=== PATIENT | male | born 1950 ===

== ENCOUNTER 2016-09-30 14:20 | Emergency (ER) | payer BC ==
[2016-09-30 14:20] VITALS: BMI 27.3
[2016-09-30 23:37] LABS: URINE BILIRUBIN NEGATIVE (NEGATIVE); URINE BLOOD NEGATIVE (NEGATIVE); URINE CLARITY Clear (Clear); URINE COLOR Yellow (YELLOW); URINE GLUCOSE (UA) NORMAL (Normal); URINE LEUKOCYTE ESTERASE NEG Leu/uL (Negative); URINE NITRATE NEGATIVE (NEGATIVE); URINE PROTEIN NEGATIVE (NEGATIVE); URINE UROBILINOGEN NORMAL mg/dL (0.2-1.0)
== END 2016-09-30 16:05 | disposition home or self-care (01) ==
LOC: C.ER 14:20
DX: M54.16 Radiculopathy, lumbar region (principal)
CPT/HCPCS: 81001; 96372; 99283; J1885

== ENCOUNTER 2016-10-05 07:52 | Emergency (ER) | payer BC ==
[2016-10-05 07:52] VITALS: BMI 27.3
[2016-10-05 08:21] LABS: URINE BILIRUBIN NEGATIVE (NEGATIVE); URINE BLOOD NEGATIVE (NEGATIVE); URINE CLARITY Clear (Clear); URINE COLOR Yellow (YELLOW); URINE GLUCOSE (UA) NORMAL (Normal); URINE LEUKOCYTE ESTERASE NEG Leu/uL (Negative); URINE NITRATE NEGATIVE (NEGATIVE); URINE PROTEIN NEGATIVE (NEGATIVE); URINE UROBILINOGEN NORMAL mg/dL (0.2-1.0)
--- NOTE | 2016-10-05 09:38 | RAD ---
PROCEDURE: Radiographs of the Lumbar Spine. HISTORY: left sciatica COMPARISON: No prior. FINDINGS: BONES: Normal alignment. No listhesis. No fracture. 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 Lumbosacral transitional elements suggested
--- NOTE | 2016-10-05 10:20 | C.PDOC ---
History Of Present Illness Patient is a 66 y/o male that presents to the ED for evaluation of low back pain radiating down to right buttock, posterior thigh/leg and down to right heel for the past week. Patient states he was seen here on 09/30/16 and was given Tramadol, and Robaxin, but states his pain still persists. Denies following up with his PMD. Otherwise, denies any fever, chills, abdominal pain, nausea, vomiting, weakness, numbness, urinary symptoms, or any other associated symptoms at this time. Chief Complaint (Nursing): Male Genitourinary History Per: Patient History/Exam Limitations: no limitations Onset/Duration Of Symptoms: Days (1 week) Current Symptoms Are (Timing): Still Present Quality Of Discomfort: "Pain" Associated Symptoms: Back Pain. denies: Fever, Chills, Nausea, Vomiting, Diarrhea, Loss Of Appetite, Chest Pain, Constipation, Urinary Symptoms Alleviating Factors: None Recent travel outside of the [place]: No Additional History Per: Patient Past Medical History Reviewed: Historical Data, Nursing Documentation, Vital Signs Vital Signs: Last Vital Signs Temp 97.7 F 10/05/16 10:39 Pulse 50 L 10/05/16 10:39 Resp 18 10/05/16 10:39 BP 133/71 10/05/16 10:39 Pulse Ox 98 10/05/16 15:07 - Medical History PMH: Diabetes, HTN, Hypercholesterolemia Family History: States: Unknown Family Hx - Social History Hx Alcohol Use: No Hx Substance Use: No - Immunization History Hx Tetanus Toxoid Vaccination: Yes Hx Influenza Vaccination: Yes Hx Pneumococcal Vaccination: Yes Review Of Systems Except As Marked, All Systems Reviewed And Found Negative. Constitutional: Negative for: Fever, Chills Gastrointestinal: Negative for: Nausea, Vomiting, Abdominal Pain Genitourinary: Negative for: Dysuria, Frequency, Incontinence, Hematuria Musculoskeletal: Positive for: Back Pain Neurological: Negative for: Weakness, Numbness, Headache, Dizziness Physical Exam - Physical Exam Appears: Non-toxic, No Acute Distress Skin: Normal Color, Warm, Dry Head: Atraumatic, Normacephalic Eye(s): bilateral: Normal Inspection, EOMI Neck: Normal ROM, Supple Chest: Symmetrical, No Tenderness Cardiovascular: Rhythm Regular, No Murmur Respiratory: Normal Breath Sounds, No Rales, No Rhonchi, No Wheezing Gastrointestinal/Abdominal: Soft, No Tenderness Back: Paraspinal Tenderness (lumbar) Extremity: Normal ROM, Tenderness (right posterior buttock, and thigh), No Calf Tenderness, No Capillary Refill (< 2 sec.), No Deformity, No Swelling Neurological/Psych: Oriented x3, Normal Speech, Normal Cognition, Normal Motor, Normal Sensation, Other (neuro intact) ED Course And Treatment O2 Sat by Pulse Oximetry: 98 (on RA) Pulse Ox Interpretation: Normal - Other Rad LS spine X-Ray: Viewed By Me, Read By Radiologist Interpretation: FINDINGS: BONES: Normal alignment. No listhesis. No fracture. 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 DISC SPACES: L5-S1 and L4-5 and minimally at L3-4 space narrowing (part of the lumbosacral junctional "Disc space narrowing narrowing probably also relates to transitional rudimentary disc. OTHER FINDINGS: Atherosclerotic vascular calcifications. IMPRESSION: Degenerative changes as above. Lumbosacral transitional elements suggested Progress Note: Urinalysis, and LS spine x-ray ordered and reviewed. Patient was given Toradol IM in the ER. On reassessment, patient is resting comfortably, with no acute distress. Patient reports improvement of symptoms. Patient is being discharged home with instructions to follow up with PMD. Disposition - Disposition Disposition: HOME/ ROUTINE Disposition Time: 11:22 Condition: STABLE Additional Instructions: Follow up with your PMD within 1-2 days. Return to Ed if feel worse. Prescriptions: oxyCODONE/Acetaminophen [Percocet 5/325 mg Tab] 1 tab PO QID PRN #20 tab PRN Reason: Pain Instructions: Sciatica (ED) Forms: Work Excuse Print Language: ICELANDIC - Clinical Impression Clinical Impression: Sciatica - PA / UNIT ASSEMBLER / Resident Statement MD/DO has reviewed & agrees with the documentation as recorded. - Scribe Statement The provider has reviewed the documentation as recorded by the Tiffanie Ovalle All medical record entries made by the Teaganibmireya were at my direction and personally dictated by me. I have reviewed the chart and agree that the record accurately reflects my personal performance of the history, physical exam, medical decision making, and the department course for this patient. I have also personally directed, reviewed, and agree with the discharge instructions and disposition.
[2016-10-05 10:40] VITALS: BP 133/71; PULSE 50; RESP 18; TEMP 97.7
[2016-10-05 11:25] VITALS: O2SAT 98
== END 2016-10-05 11:36 | disposition home or self-care (01) ==
LOC: C.ER 07:52
DX: M54.31 Sciatica, right side (principal)
CPT/HCPCS: 72100; 81001; 96372; 99284; J1885

== ENCOUNTER 2017-10-29 08:56 | Emergency (ER) | payer BC, MEDICARE ==
[2017-10-29 08:56] VITALS: BMI 27.3
[2017-10-29 09:18] VITALS: RESP 20; O2SAT 96
[2017-10-29] MEDS ORDERED: Naproxen 550 mg Tab PO STA (09:34)
[2017-10-29] MEDS ORDERED: Naproxen 550 mg Tab PO ONE (09:55)
--- NOTE | 2017-10-29 10:16 | C.PDOC ---
History Of Present Illness 67 y/o male presents to the ER complaining of non-productive cough and pleuritic chest pain present for the past 3 days. Patient denies SOB, fever, sore throat, runny nose, rash, and falls/injuries. Time Seen by Provider: 10/29/17 09:24 Chief Complaint (Nursing): Cough, Cold, Congestion History Per: Patient History/Exam Limitations: no limitations Onset/Duration Of Symptoms: Days Current Symptoms Are (Timing): Still Present Severity: Mild Past Medical History Reviewed: Historical Data, Nursing Documentation, Vital Signs Vital Signs: Last Vital Signs Temp 97.7 F 10/29/17 10:30 Pulse 56 L 10/29/17 10:30 Resp 20 10/29/17 09:16 BP 113/65 10/29/17 10:30 Pulse Ox 96 10/30/17 18:21 - Medical History PMH: Diabetes, HTN, Hypercholesterolemia Surgical History: No Surg Hx Family History: States: No Known Family Hx - Social History Hx Alcohol Use: No Hx Substance Use: No - Immunization History Hx Tetanus Toxoid Vaccination: Yes Hx Influenza Vaccination: Yes Hx Pneumococcal Vaccination: Yes Review Of Systems Constitutional: Negative for: Fever, Chills ENT: Negative for: Nose Discharge, Throat Pain Cardiovascular: Positive for: Chest Pain. Negative for: Palpitations Respiratory: Positive for: Cough (non-productive cough). Negative for: Shortness of Breath Gastrointestinal: Negative for: Nausea, Vomiting, Abdominal Pain Skin: Negative for: Rash Physical Exam - Physical Exam Appears: Well, Non-toxic, No Acute Distress, Other (speaking in full sentences) Skin: Normal Color, Warm, Dry, No Rash (chest and back) Head: Normacephalic Eye(s): bilateral: Normal Inspection Oral Mucosa: Moist Throat: Normal, No Erythema, No Exudate Chest: Symmetrical, Tenderness Cardiovascular: Rhythm Regular Respiratory: Normal Breath Sounds, No Rales, No Rhonchi, No Wheezing Neurological/Psych: Oriented x3 ED Course And Treatment O2 Sat by Pulse Oximetry: 96 (RA) Pulse Ox Interpretation: Normal - Radiology CXR: Interpreted by Me, Viewed By Me CXR Interpretation: Yes: No Acute Disease. No: Infiltrates Progress Note: CXR ordered and reviewed. Patient given PO Naprosyn and Tessalon , in ED. Reevaluation Time: 10:15 Reassessment Condition: Improved (On reassessment, patient is resting comfortably, in no distress. Cough has improved, and on exam he has good air entry B/L without wheezing/rales/rhonchi. CXR unremarkable. Symptoms likely viral vs sima inhibitor/ARB. Patient instructed to follow up with PMD in 1-2 days , and to discuss HTN meds with PMD if symptoms continue. He understands he should return to ED if symptoms worsen.) Disposition Counseled Patient/Family Regarding: Diagnosis, Need For Followup, Rx Given - Disposition Referrals: Lisbeth Snider APN [Advanced Practice Nurse] - Disposition: HOME/ ROUTINE Disposition Time: 10:15 Condition: STABLE Additional Instructions: FOLLOW UP WITH YOUR DOCTOR/CLINIC IN 1-2 DAYS USE MEDICATIONS NEEDED TALK TO YOUR DOCTOR ABOUT YOUR [place] IF COUGH PERSISTS RETURN TO EMERGENCY ROOM IF SYMPTOMS WORSEN SEGUIMIENTO CON FERNANDEZ MDICO / CLNICA EN 1-2 ALFONSO USE MEDICAMENTOS SEGN SEA NECESARIO HABLE CON FERNANDEZ MDICO SOBRE FERNANDEZ [place] SI LA TOS PERSISTE REGRESE AL ISABELL DE EMERGENCIA SI LOS SNTOMAS EMPEORAN Prescriptions: Benzonatate [Tessalon Perles] 100 mg PO BID PRN #15 sgl PRN Reason: Cough Naproxen 375 mg PO BID PRN #20 tablet PRN Reason: pain Instructions: Cough, Adult (DC) Forms: [facility] (Salvadorean), General Discharge Instructions Print Language: ALBANIAN - Clinical Impression Clinical Impression: Dry cough - Scribe Statement The provider has reviewed the documentation as recorded by the Tiffanie Solis Provider Attestation: All medical record entries made by the Teaganibmireya were at my direction and personally dictated by me. I have reviewed the chart and agree that the record accurately reflects my personal performance of the history, physical exam, medical decision making, and the department course for this patient. I have also personally directed, reviewed, and agree with the discharge instructions and disposition.
[2017-10-29 10:30] VITALS: BP 113/65; PULSE 56; TEMP 97.7
--- NOTE | 2017-10-29 13:23 | RAD ---
Date of service: 10/29/2017 HISTORY: COUGH, BACK PAIN COMPARISON: No prior. TECHNIQUE: Chest PA and lateral FINDINGS: LUNGS: No active pulmonary disease. PLEURA: No significant pleural effusion identified. No pneumothorax apparent. CARDIOVASCULAR: Atherosclerotic aortic calcifications. Cardiomediastinal silhouette prominent. OSSEOUS STRUCTURES: Degenerative changes. VISUALIZED UPPER ABDOMEN: Normal. OTHER FINDINGS: None. IMPRESSION: No active disease.
== END 2017-10-29 10:35 | disposition home or self-care (01) ==
LOC: C.ER 08:56
DX: R05 Cough (principal); I10 Essential (primary) hypertension; Z87.891 Personal history of nicotine dependence